=== PATIENT | male | born 1955 | race Caucasian/White ===

== ENCOUNTER → 2017-04-01 | Outpatient (CLI) | payer MEDICARE ==
--- NOTE | 2017-04-01 14:49 | PCVCIMAG ---
EXAM: BILATERAL CAROTID DUPLEX INDICATION: Carotid Occlusive Disease. FINDINGS: Doppler Measurements (centimeters per second): RIGHT: Peak CCA-74, Peak ECA-53, Diastolic ICA-27, Peak ICA-66, ICA/CCA Ratio-0.9. LEFT: Peak CCA-49, Peak ECA-31, Diastolic ICA-45, Peak ICA-122, ICA/CCA Ratio-2.5. RIGHT CAROTID: The carotid bulb has moderate plaque. The proximal internal carotid artery shows <40% stenosis. The common carotid artery shows no significant stenosis. The external carotid artery shows no significant stenosis. LEFT CAROTID: The carotid bulb has moderate plaque. The proximal internal carotid artery shows 40-50% stenosis. The common carotid artery shows no significant stenosis. The external carotid artery shows no significant stenosis. Antegrade flow in both vertebral arteries. IMPRESSION: <40% stenosis of the right internal carotid artery with moderate plaque. 40-50% stenosis of the left internal carotid artery with moderate plaque. Moderately irregular flow pattern in the left cervical internal carotid artery may be the sequela of the previously suspected carotid dissection which was discussed on CTA from May 2014. Further evaluation with CTA of the head and neck is recommended. LOC:[id number]
== END | disposition home or self-care (01) ==
LOC: PCVCIMAG 13:52
PROVIDERS: ATTEND Internal Medicine Cardiovascular Disease
DX: I25.10 Atherosclerotic heart disease of native coronary artery without angina pectoris (principal); E78.00 Pure hypercholesterolemia, unspecified; I77.71 Dissection of carotid artery; I63.9 Cerebral infarction, unspecified; I10 Essential (primary) hypertension; F17.210 Nicotine dependence, cigarettes, uncomplicated; I65.23 Occlusion and stenosis of bilateral carotid arteries; R94.31 Abnormal electrocardiogram [ECG] [EKG]; I45.10 Unspecified right bundle-branch block; Z79.899 Other long term (current) drug therapy
CPT/HCPCS: 80061; 93005; 93880; G0463

== ENCOUNTER → 2017-04-22 | Outpatient (CLI) | payer MEDICARE ==
[~2017-04-22] MED LIST: REGADENOSON 0.4 MG/5 ML DISP.SYRIN. IV ONE
--- NOTE | 2017-04-22 09:55 | PCVCIMAG ---
APPROVED REPORT Study performed: 04/22/2017 08:38:55 EXAM: Comprehensive 2D, Doppler, and color-flow Echocardiogram Patient Location: Echo lab Room #: 2Status: routine BSA: 1.64 HR: 77 bpmBP: 102/74 mmHg Rhythm: NSR Indications CVA/TIA CAD Cardiomyopathy Hx multiple AK, stents 2D Dimensions LVEF(%): 6.39 (>50%) IVSd: 7.44 (7-11mm)LVOT Diam: 18.38 (18-24mm) LVDd: 46.38 mm PWd: 7.11 (7-11mm)Ascending Ao: 24.26 (22-36mm) LVDs: 45.09 (25-40mm) Left Atrium: 36.47 (27-40mm) Aortic Root: 23.82 mm LV Single Plane 4CH: 29.56 % LV Single Plane 2CH: 15.48 %Miranda's LVEF: 22.52 % Biplane EF: 22.9 % Volumes Left Atrial Volume (Systole) Single Plane 4CH: 48.90 mLSingle Plane 2CH: 50.32 mL Biplane LA Volume: 54.00 mLLA ESV Index: 33.00 mL/m2 Aortic Valve AoV Peak Boni.: 0.89 m/s AO Peak Gr.: 3.20 mmHgLVOT Max P.23 mmHg LVOT Max V: 0.55 m/s ANAHI Vmax: 1.64 cm2 Mitral Valve E/A Ratio: 3.1 MV Decel. Time: 126.49 ms MV E Max Boni.: 0.96 m/s MV A Boni.: 0.31 m/s IVRT: 93.43 ms TDI E/Lateral E': 19.20E/Medial E': 19.20 Medial E' Boni.: 0.05 m/s Lateral E' Boni.: 0.05 m/s Pulmonary Valve PV Peak Boni.: 0.85 m/sPV Peak Gr.: 2.86 mmHg Pulmonary Vein P Vein S: 0.29 m/sP Vein A: 0.21 m/s P Vein D: 0.81 m/sP Vein A Dur.: 76.1 msec P Vein S/D Ratio: 0.36 Tricuspid Valve TR Peak Boni.: 3.12 m/s TR Peak Gr.: 38.85 mmHg TV Vmax: 0.59 m/sPA Pressure: 46.00 mmHg Left Ventricle Flattened septum consistent with right ventricular pressure overload. Anterior,lateral and inferior rosario -severe hypokinesis to akinetic. Left ventricular systolic function is severely decreased. LVEF is 20-25%.only basilar septum and inf base rosalinda Transmitral Doppler flow pattern suggests restrictive physiology. Atria Left atrium is at the upper limits of normal. Right atrium is mildly dilated. Aortic Valve Aortic valve is trileaflet. Aortic valve leaflets are sclerotic but open well. Mitral Valve Trace to mild mitral regurgitation. Tricuspid Valve Mild tricuspid regurgitation with a PA pressure of 46mmHg. PAP is moderately elevated Great Vessels Aortic arch is not well visualized but is normal where seen. Pericardium There is no pleural effusion. <Conclusion> Left ventricular systolic function is severely decreased. LVEF is 20-25%.only basilar septum and inf base rosalinda Transmitral Doppler flow pattern suggests restrictive physiology. Left atrium is at the upper limits of normal. Right atrium is mildly dilated. Aortic valve is trileaflet. Aortic valve leaflets are sclerotic but open well. Mild tricuspid regurgitation with a PA pressure of 46mmHg. PAP is moderately elevated
--- NOTE | 2017-04-25 21:32 | PCVCIMAG ---
APPROVED REPORT Exam: Nuclear Stress Test Indication: CAD Patient Location: Out-Patient Stress Nurse: Miriam Beck RN, PERLA Feng Tech:Indy BeckhbunREBA Ht: 5 ft 6 in Wt: 125 lbs BSA: 1.64 m2 HR: 80 bpm BP: 114/75 mmHg BMI: 20.1 Rhythm: NSR Medical History Medical History: HTN, Hyperlipidemia, CVD, [place], Current Smoker Medications: Lisinopril, HCTZ, Coreg, Atorvastatin Allergies: CONTACT Previous Cardiac Procedures: PCI Pretest Chest Pain Characteristics: No chest pain Exercise History: Physically active Physical Disabilities: physical limitations Meds Held (24 hrs): Coreg NM EXAM: Myocardial Perfusion REST/STRESS Imaging Protocol: Rest Tc-99m/Stress Tc-99m 1 day Resting Data Rest SPECT myocardial perfusion imaging was performed in supine position 45 minutes following the intravenous injection of 8.8 mCi of Tc-99m Sestamibi. Time of rest injection: 0930 Date: 04/22/2017 Administration Route: IV Administration Site: Right AC Pharmacologic Stress Pharmacologic stress test was performed by injecting Regadenoson 0.4 mg IV push followed by the intravenous injection of 26.2 mCi of Tc-99m Sestamibi. Time of stress injection: 1040 Date: 04/22/2017 Administration Route: IV Administration Site: Right AC Gated Stress SPECT was performed 45 minutes after stress injection. The images were gated to evaluate regional wall motion and calculate left ventricular ejection fraction. Study Quality Study: Good Study Data Post stress, the left ventricular ejection was 32%.. SSS: 24 SRS: 22 SDS: 2 TID = 1.08. Perfusion Medium sized area of moderate reversible ischemia involving the mid/basal inferolateral left ventricle consistent with a circumflex distribution. 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 Wall Motion Moderately severe decreased left ventricular systolic function. Nuclear Conclusion Medium sized area of moderate reversible ischemia involving the mid/basal inferolateral left ventricle consistent with a circumflex distribution. 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 Post stress, the left ventricular ejection was 32%.. No prior study available for comparison. Interpreted by: Gera Alejandra MD Electronically Approved: 04/22/2017 13:56:25 Stress Test Details Stress Test: Pharmacologic stress testing performed using 0.4 mg of regadenoson per 5 mL given IV over 10 seconds. Reason for pharmacologic stress test: physical limitation. HR Resting HR: 80 bpmMax Heart Rate (APMHR): 158 bpm Max HR Achieved: 96 bpmTarget HR (85% APMHR): 134 bpm % of APMHR: 60 Recovery HR: 83 bpm BP Resting BP: 114/75 mmHg Max BP: 100/65 mmHg ECG Resting ECG: Sinus Rhythm, , RBBB Stress ECG: Sinus Rhythm, RBBB, Sinus Rhythm, NSSTT changes Recovery ECG: Sinus Rhythm, RBBB Clinical Reason for Termination: Completed protocol Stress Symptoms: None Exercise duration: 0 min 55 sec Symptoms resolved during recovery. Stress ECG Conclusion ECG: Non-ischemic <Conclusion> ECG: Non-ischemic
== END | disposition home or self-care (01) ==
LOC: PCVCIMAG 08:20
PROVIDERS: ATTEND Internal Medicine Cardiovascular Disease
DX: I08.2 Rheumatic disorders of both aortic and tricuspid valves (principal); I25.10 Atherosclerotic heart disease of native coronary artery without angina pectoris; I10 Essential (primary) hypertension; I63.9 Cerebral infarction, unspecified; I25.2 Old myocardial infarction; E78.5 Hyperlipidemia, unspecified; F17.200 Nicotine dependence, unspecified, uncomplicated; Z95.5 Presence of coronary angioplasty implant and graft
CPT/HCPCS: 78452; 93017; 93306; A9500

== ENCOUNTER → 2017-05-21 | Outpatient (CLI) | payer MEDICARE | END | disposition home or self-care (01) | LOC: PCVCCLINIC 13:00 | PROVIDERS: ATTEND Internal Medicine Cardiovascular Disease | DX: I11.0 Hypertensive heart disease with heart failure (principal); I50.22 Chronic systolic (congestive) heart failure; I25.5 Ischemic cardiomyopathy; I25.10 Atherosclerotic heart disease of native coronary artery without angina pectoris; I77.71 Dissection of carotid artery; E78.00 Pure hypercholesterolemia, unspecified; F17.210 Nicotine dependence, cigarettes, uncomplicated; Z79.899 Other long term (current) drug therapy | CPT/HCPCS: 93005; G0463 ==

== ENCOUNTER → 2017-11-19 | Outpatient (CLI) | payer MEDICARE | END | disposition home or self-care (01) | LOC: PCVCCLINIC 15:20 | DX: I25.10 Atherosclerotic heart disease of native coronary artery without angina pectoris (principal); I25.5 Ischemic cardiomyopathy; I10 Essential (primary) hypertension; E78.00 Pure hypercholesterolemia, unspecified; J44.9 Chronic obstructive pulmonary disease, unspecified; F17.210 Nicotine dependence, cigarettes, uncomplicated; Z79.899 Other long term (current) drug therapy; Z95.810 Presence of automatic (implantable) cardiac defibrillator | CPT/HCPCS: 36415; 93005; G0463 ==

== ENCOUNTER → 2018-02-05 | Outpatient (CLI) | payer MEDICARE ==
[~2018-02-05] MED LIST changes: +EPTIFIBATIDE BOLUS 2,000 MCG/ML 10ML VIAL. IV ONE; -REGADENOSON 0.4 MG/5 ML DISP.SYRIN. IV ONE
== END | disposition home or self-care (01) ==
LOC: PCVCCLINIC 08:43
PROVIDERS: ATTEND Internal Medicine Cardiovascular Disease
DX: I25.5 Ischemic cardiomyopathy (principal); I25.10 Atherosclerotic heart disease of native coronary artery without angina pectoris; I10 Essential (primary) hypertension; E78.00 Pure hypercholesterolemia, unspecified; F17.200 Nicotine dependence, unspecified, uncomplicated; Z95.810 Presence of automatic (implantable) cardiac defibrillator; Z79.899 Other long term (current) drug therapy
CPT/HCPCS: 80061; 93282; G0463; J1327

== ENCOUNTER → 2018-08-11 | Outpatient (CLI) | payer MEDICARE ==
[~2018-08-11] MED LIST changes: -EPTIFIBATIDE BOLUS 2,000 MCG/ML 10ML VIAL. IV ONE; +REGADENOSON 0.4 MG/5 ML DISP.SYRIN. IV ONE
--- NOTE | 2018-08-11 17:18 | PCVCIMAG ---
APPROVED REPORT Imaging Protocol: Rest Tc-99m/Stress Tc-99m 1 day Study performed: 08/11/2018 09:29:12 Indication: CAD, ICM Patient Location: Out-Patient Stress Nurse: Miriam Beck RN, Jania Gibbons RN [place] Tech:Indy LEDA VásquezMT Ht: 5 ft 6 in Wt: 124 lbs BSA: 1.63 m2 HR: 89 bpm BP: 134/94 mmHg BMI: 20.0 Rhythm: Sinus Rhythm, RBBB Medical History Medical History: HTN, Hyperlipidemia, CAD, ICD Medications: Atorvastatin, Carvedilol, Losartan Allergies: No known drug allergies Cardiac Risk Factors: Age Previous Cardiac Procedures: PCI Pretest Chest Pain Characteristics: No chest pain Exercise History: Physically active Resting Data Rest SPECT myocardial perfusion imaging was performed in supine position 45 minutes following the intravenous injection of 10.2 mCi of Tc-99m Sestamibi. Time of rest injection: 919 Date: 08/11/2018 Administration Route: IV Administration Site: Right Hand Pharmacologic Stress Pharmacologic stress test was performed by injecting Regadenoson 0.4 mg IV push over 10-15 seconds immediately followed by the intravenous injection of 31.2 mCi of Tc-99m Sestamibi. Time of stress injection: 1020 Date: 08/11/2018 Administration Route: IV Administration Site: Right Hand Gated Stress SPECT was performed 45 minutes after stress injection. The images were gated to evaluate regional wall motion and calculate left ventricular ejection fraction. Stress Test Details Stress Test: Pharmacologic stress testing performed using 0.4 mg of regadenoson per 5 mL given IV over 10 seconds. Reason for pharmacologic stress test: PPM, unsteady gait. HRMax Heart Rate (APMHR): 157 bpm Resting HR: 89 bpmTarget HR (85% APMHR): 133 bpm Max HR Achieved: 94 bpm % of APMHR: 59 Recovery HR: 89 bpm BP Resting BP: 134/94 mmHg Max BP: 133/95 mmHg Recovery BP: 132/93 mmHg ECG Resting ECG: Sinus Rhythm, RBBB Stress ECG: Sinus Rhythm, RBBB Recovery ECG: Sinus Rhythm, RBBB Clinical Reason for Termination: Completed protocol Stress Symptoms: Dyspnea Exercise duration: 0 min 55 sec Symptoms resolved during recovery. Stress ECG Conclusion ECG: Non-ischemic Study Quality Study: Good Study Data Post stress, the left ventricular ejection was 32.%.. SSS: 30 SRS: 31 SDS: 0 TID = 1.04. Perfusion No evidence of stress induced ischemia. Old complete infarct involving the lateral and inferior rosario of the left ventricle and apex with no citlalli-infarct ischemia. Wall Motion Moderately severe decreased left ventricular systolic function. Nuclear Conclusion No evidence of stress induced ischemia. Old complete infarct involving the lateral and inferior rosario of the left ventricle and apex with no citlalli-infarct ischemia. Post stress, the left ventricular ejection was 32.%. No change since prior study dated April 2017. Interpreted by: Gera Alejandra MD Electronically Approved: 08/11/2018 15:13:12 <Conclusion> ECG: Non-ischemic
== END | disposition home or self-care (01) ==
LOC: PCVCIMAG 09:03
PROVIDERS: ATTEND Internal Medicine Cardiovascular Disease
DX: I25.10 Atherosclerotic heart disease of native coronary artery without angina pectoris (principal); I25.5 Ischemic cardiomyopathy; I73.9 Peripheral vascular disease, unspecified; I11.0 Hypertensive heart disease with heart failure; I50.9 Heart failure, unspecified; J44.9 Chronic obstructive pulmonary disease, unspecified; E78.00 Pure hypercholesterolemia, unspecified; F17.210 Nicotine dependence, cigarettes, uncomplicated; Z95.810 Presence of automatic (implantable) cardiac defibrillator
CPT/HCPCS: 78452; 93005; 93017; 93282; A9500; G0463; J2785

== ENCOUNTER → 2019-04-06 | Outpatient (CLI) | payer MEDICARE ==
--- NOTE | 2019-04-06 15:26 | PCVCIMAG ---
APPROVED REPORT Study performed: 04/06/2019 14:38:14 EXAM: Comprehensive 2D, Doppler, and color-flow Echocardiogram Patient Location: Echo lab Room #: 3Status: routine BSA: 1.53 HR: 78 bpmBP: 100/60 mmHg Rhythm: NSR, RBBB Other Information Study Quality: Good Risk Factors: Cardiac Risk Factors: Smoking Indications COPD Cardiomyopathy SVT ICD 2D Dimensions IVSd: 10.78 (7-11mm)LVOT Diam: 20.00 (18-24mm) LVDd: 53.40 mm PWd: 9.60 (7-11mm)Ascending Ao: 29.69 (22-36mm) LVDs: 45.97 (25-40mm) Left Atrium: 37.63 (27-40mm) Aortic Root: 26.20 mm LV Single Plane 4CH: 30.29 % LV Single Plane 2CH: 30.54 % Biplane EF: 30.0 % Volumes Left Atrial Volume (Systole) Single Plane 4CH: 69.15 mLSingle Plane 2CH: 78.30 mL LA ESV Index: 50.00 mL/m2 Aortic Valve AoV Peak Boni.: 1.21 m/s AO Peak Gr.: 5.87 mmHgLVOT Max P.90 mmHg LVOT Max V: 0.69 m/s ANAHI Vmax: 1.72 cm2 Mitral Valve E/A Ratio: 1.7 MV Decel. Time: 188.45 ms MV E Max Boni.: 0.99 m/s MV A Boni.: 0.59 m/s IVRT: 62.28 ms Pulmonary Valve PV Peak Boni.: 0.73 m/sPV Peak Gr.: 2.12 mmHg Pulmonary Vein P Vein S: 0.40 m/s P Vein D: 0.23 m/s P Vein S/D Ratio: 1.74 Tricuspid Valve TR Peak Boni.: 2.87 m/sRAP Estimate: 10.00 mmHg TR Peak Gr.: 32.85 mmHg PA Pressure: 43.00 mmHg Left Ventricle The left ventricle is normal size. Anterior akinesis. Anterolateral, apical, and inferolateral hypokinesis. There is normal left ventricular wall thickness. Left ventricular systolic function is severely decreased. LVEF is 25-30%. Moderate diastolic dysfunction is present (pseudonormal filling). Right Ventricle Right ventricle is dilated. Right ventricle is hypokinetic. Device lead is present in the right heart. Atria Left atrium is severely dilated. Right atrium is dilated. Aortic Valve Aortic valve leaflets are mildly calcified. No aortic regurgitation is present. There is no aortic valvular stenosis. Mitral Valve There is mitral annular calcification. Trace mitral regurgitation. No evidence of mitral valve stenosis. Tricuspid Valve The tricuspid valve is normal in structure. Mild to moderate tricuspid regurgitation. Pulmonary artery pressure is 43 mmHg. Moderate pulmonary hypertension. Pulmonic Valve The pulmonary valve is normal in structure. Mild pulmonic regurgitation. Great Vessels The aortic root is normal in size. The ascending aorta is normal in size. IVC is normal in size and collapses <50% with inspiration. Pericardium Sasmll pericardial effusion. No echo indications of pericardial tamponade. <Conclusion> The left ventricle is normal size. Left ventricular systolic function is severely decreased. LVEF is 25-30%. Moderate diastolic dysfunction is present (pseudonormal filling). Right ventricle is dilated. Right ventricle is hypokinetic. Left atrium is severely dilated. Right atrium is dilated. Device lead is present in the right heart. Anterior akinesis. Anterolateral, apical, and inferolateral hypokinesis. Aortic valve leaflets are mildly calcified. Trace mitral regurgitation. Mild to moderate tricuspid regurgitation. Pulmonary artery pressure is 43 mmHg. Moderate pulmonary hypertension. The aortic root is normal in size. Sasmll pericardial effusion. No echo indications of pericardial tamponade.
== END | disposition home or self-care (01) ==
LOC: PCVCIMAG 13:32
PROVIDERS: ATTEND Internal Medicine Cardiovascular Disease
DX: I08.8 Other rheumatic multiple valve diseases (principal); I25.5 Ischemic cardiomyopathy; J44.9 Chronic obstructive pulmonary disease, unspecified; I11.0 Hypertensive heart disease with heart failure; I50.9 Heart failure, unspecified; I27.20 Pulmonary hypertension, unspecified; I31.3 Pericardial effusion (noninflammatory); I45.10 Unspecified right bundle-branch block; R94.31 Abnormal electrocardiogram [ECG] [EKG]; E78.00 Pure hypercholesterolemia, unspecified; I21.29 ST elevation (STEMI) myocardial infarction involving other sites; F17.210 Nicotine dependence, cigarettes, uncomplicated; Z95.810 Presence of automatic (implantable) cardiac defibrillator; Z85.3 Personal history of malignant neoplasm of breast; Z82.49 Family history of ischemic heart disease and other diseases of the circulatory system
CPT/HCPCS: 36415; 80061; 93005; 93306; G0463